=== PATIENT | male | born 1975 | race Caucasian/White ===

== ENCOUNTER 2018-09-07 23:16 | Emergency (ER) | payer OTHER ==
[2018-09-08] MEDS ORDERED: IBUPROFEN 800 MG TAB PO (00:30)
[2018-09-08] MEDS: TRIMETHOPRIM/SULFAMETHOX (DS) TAB PO (00:39)
[2018-09-08] MEDS: CEPHALEXIN 500 MG CAP PO (00:39)
[2018-09-08] MEDS: KETOROLAC 60 MG INJ IM (00:47)
== END 2018-09-08 01:13 | disposition home or self-care (01) ==
LOC: FTE 23:16
DX: L02.414 Cutaneous abscess of left upper limb (principal); F17.210 Nicotine dependence, cigarettes, uncomplicated
CPT/HCPCS: 96372; 99284-25